=== PATIENT | female | born 1945 | race Caucasian/White ===

== ENCOUNTER 2023-03-16 17:33 | Emergency (ER) | payer MEDICARE ==
[~2023-03-16] VITALS: Ht 165.1 cm; Wt 95.3 kg
[2023-03-16 17:58] VITALS: BP 132/86; PULSE 108; RESP 18; TEMP 99; O2SAT 91
[2023-03-16 18:48] LABS: BASOPHIL % 0.4 % (0.0-0.2); EOSINOPHIL # 0.1 10^3/uL (0.0-0.2); HEMATOCRIT(ML) 41.4 % (36.0-46.0); HEMOGLOBIN 13.8 g/dL (12.0-15.0); LYMPHOCYTES % 36.7 % (24.0-44.0); MEAN CORP HGB 29.7 pg (26-34); MEAN CORP HGB CONCENTRATION 33.3 g/dL (33-36.5); MEAN CORP VOLUME 89.2 fL (78-100); MONOCYTES # 0.6 10^3/uL (0.3-0.8); MONOCYTES % 24.1 % (5.0-12.0); NEUTROPHIL # 0.9 10^3/uL (1.8-7.7); NEUTROPHILS % 36.8 % (41.0-85.0); PLATELET COUNT 140 10^3/uL (150-400); RED BLOOD CELL 4.64 10^6/uL (4.00-5.20); RED CELL DISTRIBUTION WIDTH 14.1 % (11.5-14.5); WHITE BLOOD CELL 2.5 10^3/uL (4.5-11.0)
[2023-03-16 18:50] LABS: +ADD MANUAL DIFF(NO CHRG) NO
[2023-03-16 19:00] VITALS: BP 126/84; PULSE 103; RESP 18; O2SAT 92
[2023-03-16 19:04] LABS: PROTHROMBIN PROTIME 10.1 SEC (9.7-11.6)
[2023-03-16 19:07] LABS: ALBUMIN(ML) 3.3 g/dL (3.4-5.0); ALBUMIN/GLOBULIN RATIO 0.916; C-REACTIVE PROTEIN 1.46 mg/dL (0.00-5.00); CALCIUM 8.1 mg/dL (8.4-10.5); CARBON DIOXIDE 31.5 mmol/L (20.0-32); CREATININE SERUM 1.09 mg/dL (0.59-1.40); EST GFR, NON-AA 48.8 (>/=60); POTASSIUM 3.5 mmol/L (3.6-5.2)
[2023-03-16 19:11] LABS: INFLUENZA VIRUS A ANTIGEN NEGATIVE (NEG)
[2023-03-16 19:12] LABS: INFLUENZA VIRUS B ANTIGEN NEGATIVE (NEG)
[2023-03-16 20:00] VITALS: BP 145/99; PULSE 98; RESP 18; O2SAT 94
[2023-03-16 21:00] VITALS: BP 194/74; PULSE 96; RESP 18; O2SAT 90
[2023-03-16] MEDS ORDERED: METO-237 PO (21:15)
[2023-03-16] MEDS ORDERED: OMEP20CA19 PO (21:15)
[2023-03-16] MEDS ORDERED: CITA20TA9 PO (21:15)
[2023-03-16] MEDS ORDERED: CYAN50009 PO (21:15)
[2023-03-16] MEDS ORDERED: VITA25006 PO (21:15)
[2023-03-16] MEDS ORDERED: RISP0.5T62 PO (21:15)
[2023-03-16] MEDS ORDERED: LACT1TAB PO (21:15)
[2023-03-16] MEDS ORDERED: MULT-235 PO (21:15)
[2023-03-16] MEDS ORDERED: LOSA25TA12 PO (21:15)
[2023-03-16] MEDS ORDERED: DOCU-123 PO (21:15)
[2023-03-16] MEDS ORDERED: DECADRON IV STA (21:17)
[2023-03-16] MEDS ORDERED: DECADRON ONE (21:25)
[2023-03-16] MEDS ORDERED: ROCEPHIN IV STA (21:37)
[2023-03-16] MEDS ORDERED: ROCEPHIN ONE (21:41)
[2023-03-16 22:00] VITALS: BP 160/82; PULSE 86; RESP 18; O2SAT 94
== END 2023-03-16 22:40 | disposition short-term general hospital (02) ==
LOC: ER 17:33
DX: U07.1 COVID-19 (principal); J90 Pleural effusion, not elsewhere classified; J02.0 Streptococcal pharyngitis; J44.9 Chronic obstructive pulmonary disease, unspecified
CPT/HCPCS: 99291; 96374; 71275; 71045; 96375; 87426; 80053; 85025; 36415; 85379; 84484; 87040 ×2; 83605; 87880; 84145; 87804 ×2; 85610; 85730; 86140; 93005; J1100; J0696; Q9965; 99285